=== PATIENT | female | born 1985 | race Caucasian/White ===

== ENCOUNTER 2021-03-13 08:13 | Outpatient (CLI) | payer OTHER | END 2021-03-13 08:14 | disposition home or self-care (01) | LOC: CSHLAB 08:13 | PROVIDERS: ATTEND Obstetrics & Gynecology | DX: Z01.812 Encounter for preprocedural laboratory examination (principal); Z20.822 Contact with and (suspected) exposure to COVID-19; D25.9 Leiomyoma of uterus, unspecified | CPT/HCPCS: 84703; 85027; 86850; 86900; 86901; 87635; U0003; U0005 ==

== ENCOUNTER 2021-03-18 08:18 | Day surgery (SDC) | payer OTHER ==
[2021-03-13 12:58] LABS: Hemoglobin 13.1 g/dL (12.0-15.5); Mean Corpuscular HGB CONC 32.4 g/dL (32.0-36.0); Mean Corpuscular Hemoglobin 28.7 pg (27.0-33.0); Mean Corpuscular Volume 88.6 fl (81.6-98.3); Mean Platelet Volume 10.6 fl (7.4-10.4); Platelet Count 304 10x3/uL (150-450); RBC Distribution Width 12.7 % (11.5-14.5); Red Blood Cell (RBC) Count 4.56 10x6/uL (3.90-5.03); White Blood Cell (WBC) Count 8.7 10x3/uL (3.5-10.5)
[2021-03-13 13:20] LABS: BHCG - Serum Negative (NEGATIVE); Pregs Control Background? CLEAR/WHITE (CLR/WHITE); Pregs Control Bar Appear? YES (CONTROL BAR)
[2021-03-13 20:43] LABS: SARS-CoV-2 PCR by NAA Not Detected (NotDetected)
[2021-03-17 09:53] VITALS: BMI 38.2
[2021-03-18] MEDS ORDERED: CeleCOXIB 100 MG CAP ONE (08:38)
[2021-03-18] MEDS ORDERED: Gabapentin 300 MG CAP ONE (08:38)
[2021-03-18] MEDS ORDERED: Lidocaine 1% MPF 2 ML VIAL ONE (08:38)
[2021-03-18] MEDS ORDERED: Famotidine/PF 20 mg/2ml Vial ONE (08:38)
[2021-03-18] MEDS ORDERED: Midazolam HCl 2 mg/2 ml Vial ONE (09:28)
[2021-03-18] MEDS ORDERED: EPINEPHrine 1 MG/ML AMP ONE (09:44)
[2021-03-18] MEDS ORDERED: Bupivacaine PF 0.5% 30 ML VIAL ONE (09:45)
[2021-03-18] MEDS ORDERED: Lidocaine 1% PF 5 ML VIAL ONE (10:01)
[2021-03-18] MEDS ORDERED: Rocuronium Bromide 10 MG/ML (10ML VIAL) ONE (10:01)
[2021-03-18] MEDS ORDERED: PROPOFOL 20 ML ONE (10:01)
[2021-03-18] MEDS ORDERED: Fentanyl 250 MCG/5 ML VIAL ONE (10:01)
[2021-03-18] MEDS ORDERED: Dexamethasone 4 mg/ml Vial ONE ×2 (10:01→10:48)
[2021-03-18] MEDS ORDERED: Ondansetron PF 4 MG/2 ML Vial ONE (10:01)
[2021-03-18] MEDS ORDERED: Glycopyrrolate 0.2 MG/ML 5 ML SYRINGE ONE (10:52)
[2021-03-18] MEDS ORDERED: Ketorolac Tromethamine 30 MG/ML VIAL ONE (13:17)
[2021-03-18] MEDS ORDERED: Morphine 4 MG/ML VIAL ONE (13:39)
[2021-03-18] MEDS ORDERED: HYDROcodone/Acetaminophen 5/325 mg Tablet ONE (14:49)
[2021-03-18] MEDS ORDERED: Ondansetron PF 4 MG/2 ML Vial IVP PRN (17:40)
[2021-03-18] MEDS ORDERED: Simethicone Chewable 80 MG TAB PO PRN (17:40)
[2021-03-18] MEDS ORDERED: traMADol HCl 50 MG TAB PO PRN (17:40)
[2021-03-18] MEDS ORDERED: diphenhydrAMINE 25 MG CAP PO PRN (17:40)
[2021-03-18] MEDS ORDERED: Bisacodyl 10 MG SUPP PR PRN (17:40)
[2021-03-18] MEDS ORDERED: Morphine 2 MG/ML VIAL SLOW IVP PRN (17:40)
[2021-03-18] MEDS ORDERED: Acetaminophen 325 MG TAB PO PRN (17:40)
[2021-03-18] MEDS: Lactated Ringer's 1,000 ML IV SCH ×2 (18:06→19:56)
[2021-03-18] MEDS: Ketorolac Tromethamine 30 MG/ML VIAL IVP SCH (19:47)
[2021-03-19] MEDS: traMADol HCl 50 MG TAB PO PRN ×2 (01:21→08:12)
[2021-03-19] MEDS: Ketorolac Tromethamine 30 MG/ML VIAL IVP SCH (01:53)
[2021-03-19 06:52] LABS: Hemoglobin 11.5 g/dL (12.0-15.5); Mean Corpuscular HGB CONC 32.6 g/dL (32.0-36.0); Mean Corpuscular Hemoglobin 28.9 pg (27.0-33.0); Mean Corpuscular Volume 88.7 fl (81.6-98.3); Mean Platelet Volume 10.3 fl (7.4-10.4); Platelet Count 258 10x3/uL (150-450); RBC Distribution Width 12.3 % (11.5-14.5); Red Blood Cell (RBC) Count 3.98 10x6/uL (3.90-5.03); White Blood Cell (WBC) Count 15.1 10x3/uL (3.5-10.5)
[2021-03-19 08:00] VITALS: BP 116/59; TEMP 98.5
[2021-03-19] MEDS ORDERED: Ketorolac Tromethamine 30 MG/ML VIAL IVP SCH (08:00)
[2021-03-23] MEDS ORDERED: Ibuprofen 800 MG TAB PO SCH (21:00)
== END 2021-03-19 09:30 | disposition home or self-care (01) ==
LOC: CSHSDC 08:18 → CSHPP 16:30 → UNDOADMIN 16:30 → CSHSDC 03-19 09:30 → UNDODISIN 03-19 09:30
PROVIDERS: ATTEND Obstetrics & Gynecology
PROC: 0UT94ZZ Resection of Uterus, Percutaneous Endoscopic Approach (ICD-10-PCS; principal; 2021-03-18)
PROC: 0UT74ZZ Resection of Bilateral Fallopian Tubes, Percutaneous Endoscopic Approach (ICD-10-PCS; principal; 2021-03-18)
DX: D25.1 Intramural leiomyoma of uterus (principal); N87.9 Dysplasia of cervix uteri, unspecified; N72 Inflammatory disease of cervix uteri; N80.0 Endometriosis of uterus; E66.9 Obesity, unspecified; Z68.38 Body mass index [BMI] 38.0-38.9, adult; Z79.899 Other long term (current) drug therapy; Z88.8 Allergy status to other drugs, medicaments and biological substances
CPT/HCPCS: 84703; 85027; 86850; 86900; 86901; 87635; 88307; J0171; J0690; J1100; J1885; J2250; J2270; J2405; J2704; J3010; S0020; S0028; U0003; U0005